=== PATIENT | male | born 1965 | race Caucasian/White ===

== ENCOUNTER 2021-07-13 16:51 | Inpatient (IN) | payer SELFPAY ==
[~2021-07-13] VITALS: Ht 188 cm; Wt 104.3 kg
[2021-07-13 20:00] LABS: HEMOGLOBIN 14.1 gm/dl (14.0-17.5); RED BLOOD COUNT 4.96 M/UL (4.20-5.50); WHITE BLOOD COUNT 15.4 K/UL (4.5-11.0)
[2021-07-13 20:10] LABS: BORDETELLA PARAPERTUSSIS Not Detected (Not Detectd); BORDETELLA PERTUSSIS Not Detected (Not Detectd); CHLAMYDIA PNEUMONIAE Not Detected (Not Detectd); CORONAVIRUS HKU1 Not Detected (Not Detectd); CORONAVIRUS NL63 Not Detected (Not Detectd); CORONAVIRUS OC43 Not Detected (Not Detectd); CORONOAVIRUS 229E Not Detected (Not Detectd); HUMAN METAPNEUMOVIRUS Not Detected (Not Detectd); INFLUENZA A Not Detected (Not Detectd); INFLUENZA B Not Detected (Not Detectd); MYCOPLASMA PNEUMONIAE Not Detected (Not Detectd); PARAINFLUENZA VIRUS 1 Not Detected (Not Detectd); PARAINFLUENZA VIRUS 2 Not Detected (Not Detectd); PARAINFLUENZA VIRUS 3 Not Detected (Not Detectd); PARAINFLUENZA VIRUS 4 Not Detected (Not Detectd); RESPIRATORY SYNCYTIAL VIRUS Not Detected (Not Detectd)
[2021-07-13 20:31] LABS: BUN/CREATININE RATIO 19 (0-10)
[2021-07-13 21:32] LABS: HUMAN RHINOVIRUS/ENTEROVIRUS DETECTED (Not Detectd); SARS-CoV-2 NOT DETECTED (Not Detectd)
[2021-07-15 06:41] LABS: RED BLOOD COUNT 4.55 M/UL (4.20-5.50)
[2021-07-15 06:46] LABS: WHITE BLOOD COUNT 21.2 K/UL (4.5-11.0)
[2021-07-15 07:17] LABS: BUN/CREATININE RATIO 29 (0-10)
[2021-07-15] MEDS ORDERED: DULERA 100 MCG8.8 GM INH (17:25)
[2021-07-15] MEDS ORDERED: MEDROL DOSEPAK 24 MG PO (17:25)
[2021-07-15] MEDS ORDERED: PREDNISOLONE ACETATE EYEBOTH (17:25)
[2021-07-15] MEDS ORDERED: LOPRESSOR 50 MG50 MG PO (17:25)
[2021-07-15] MEDS ORDERED: COMBIVENT RESPIM4 GM INH (17:25)
[2021-07-16] MEDS ORDERED: COMBIVENT RESPIM4 GM INH (11:46)
[2021-07-20 15:14] LABS: FRANCISELLA TULARENSIS IGG Negative (Negative); FRANCISELLA TULARENSIS IGM Negative (Negative)
== END 2021-07-16 11:39 | DRG 202 ==
LOC: ER1 16:51 → CDU 23:12 → MED SURG 4 23:12
PROVIDERS: Emergency Medicine; Internal Medicine Infectious Disease; ADMIT Internal Medicine
DX: J20.8 Acute bronchitis due to other specified organisms (principal); J96.02 Acute respiratory failure with hypercapnia; J96.01 Acute respiratory failure with hypoxia; J44.0 Chronic obstructive pulmonary disease with (acute) lower respiratory infection; J98.11 Atelectasis; E11.9 Type 2 diabetes mellitus without complications; I10 Essential (primary) hypertension; Z20.822 Contact with and (suspected) exposure to COVID-19; E78.5 Hyperlipidemia, unspecified; R00.0 Tachycardia, unspecified; F17.210 Nicotine dependence, cigarettes, uncomplicated; F19.10 Other psychoactive substance abuse, uncomplicated; Z98.890 Other specified postprocedural states; Z79.899 Other long term (current) drug therapy; Z79.52 Long term (current) use of systemic steroids; H10.13 Acute atopic conjunctivitis, bilateral; T43.625A Adverse effect of amphetamines, initial encounter
CPT/HCPCS: 36415; 36600; 71045; 71250; 80053; 80307; 81001; 82550; 82553; 82803; 83036; 83605; 83690; 83735; 83874; 84100; 84484; 85025; 85610; 85652; 85730; 86140; 86668; 87040; 87086; 87633; 93005; 94640; 94664; 94760; 96374; 96375; 99284; J2543; J2920; J2930; J3370; J7030